=== PATIENT | male | born 1995 | race Caucasian/White ===

== ENCOUNTER 2018-11-23 15:44 | Emergency (ER) | payer OTHER, SELFPAY ==
[2018-11-23 15:51] VITALS: BP 131/76; PULSE 94; RESP 12; TEMP 36.7; O2SAT 100; BMI 27.9
--- NOTE | 2018-11-23 16:00 | EKG12_ITS ---
Test Reason : [facility] Blood Pressure : / mmHG Vent. Rate : 084 BPM Atrial Rate : 084 BPM P-R Int : 166 ms QRS Dur : 094 ms QT Int : 344 ms P-R-T Axes : 069 069 068 degrees QTc Int : 406 ms Normal sinus rhythm with sinus arrhythmia Normal ECG Confirmed by ANAND REYEZ, NATALIE ([id number]), business editor PATRICIA AUGUSTINE ([id number] on 11/26/2018 9:52:24 AM Referred By: Jacoby Toledo Confirmed By:NATALIE MICHEL MD
--- NOTE | 2018-11-23 16:01 | ED.VISSUMM ---
- ER Visit Summary Date of Service: 11/23/18 Chief Complaint: Suicidal ideation History of Present Illness: The patient is a 23 M who presents for suicidal ideation. Patient was being evaluated at the counseling center, and was referred to the emergency department with a pink slip in place due to suicidal ideation. Per the counseling center, patient is feeling suicidal and has a plan to hang himself or shoot himself with a gun. He does have access to guns in his home. Patient is on Abilify, Lexapro and Wellbutrin, but he has not taken them in 3 days because he ran out. Patient also has not been eating or sleeping well. Patient is denying being suicidal today, although he does admit that he has at the 2 plans. He states he has been feeling that way for a couple days now. He denies any chest pain, shortness of breath, headache, abdominal pain, nausea or vomiting or any other complaints. Physical Examination: Vital signs: afebrile, hemodynamically stable, no hypoxia on room air General: well nourished, well developed, in no distress Skin: warm, dry, no rash, no pallor HEENT: normocephalic and atraumatic; PERRL, EOMI, moist mucous membranes Cardiovascular: regular rate and rhythm without murmurs, no peripheral edema, 2+ pulses all distal extremities Respiratory: No increased work of breathing, lungs are clear to auscultation bilaterally, no rales, rhonchi or wheezing Abdominal: Abdomen is soft, nontender MSK: Moves all extremities, no deformities, normal strength Neuro: Awake and alert, oriented ?4. No facial droop, sensation and motor function intact and symmetric Psych: Depressed affect, poor eye contact, positive for suicidal ideation Test Results: Abnormal Lab Results 11/23/18 11/23/18 11/23/18 17:15 17:21 17:21 WBC 4.2 L RBC 5.32 Hgb 15.5 Hct 46.9 MCV 88.2 MCH 29.1 MCHC 33.0 RDW 12.9 RDW Differential 41.5 Plt Count 226 MPV 9.4 Immature Gran % (Auto) 0.200 Neut % (Auto) 46.2 L Lymph % (Auto) 36.0 Caribou % (Auto) 13.1 H Eos % (Auto) 3.8 Baso % (Auto) 0.7 Absolute Neuts (auto) 1.9 L Absolute Lymphs (auto) 1.51 Total Counted Not Reportable Sodium 140 Potassium 4.1 Chloride 108 H Carbon Dioxide 31.0 Anion Gap 1 L BUN 7 Creatinine 0.93 Estim Creat Clear Calc 128.64 Est GFR (MDRD) Af Amer 130 Est GFR (MDRD) Non-Af 107 BUN/Creatinine Ratio 7.5 L Glucose 84 Calcium 8.7 Total Bilirubin 0.50 AST 16 ALT 35 Alkaline Phosphatase 67 Total Protein 7.1 Albumin 4.1 Globulin 3.0 Albumin/Globulin Ratio 1.4 Urine Opiates Screen NEGATIVE Urine Methadone Screen NEGATIVE Ur Barbiturates Screen NEGATIVE Ur Phencyclidine Scrn NEGATIVE Ur Amphetamines Screen NEGATIVE U Methamphetamin-MDMA NEGATIVE U Benzodiazepines Scrn NEGATIVE Urine Cocaine Screen NEGATIVE U Cannabinoids Screen NEGATIVE Ur Drug Screen Comment Ethyl Alcohol 11/23/18 17:21 WBC RBC Hgb Hct MCV MCH MCHC RDW RDW Differential Plt Count MPV Immature Gran % (Auto) Neut % (Auto) Lymph % (Auto) Caribou % (Auto) Eos % (Auto) Baso % (Auto) Absolute Neuts (auto) Absolute Lymphs (auto) Total Counted Sodium Potassium Chloride Carbon Dioxide Anion Gap BUN Creatinine Estim Creat Clear Calc Est GFR (MDRD) Af Amer Est GFR (MDRD) Non-Af BUN/Creatinine Ratio Glucose Calcium Total Bilirubin AST ALT Alkaline Phosphatase Total Protein Albumin Globulin Albumin/Globulin Ratio Urine Opiates Screen Urine Methadone Screen Ur Barbiturates Screen Ur Phencyclidine Scrn Ur Amphetamines Screen U Methamphetamin-MDMA U Benzodiazepines Scrn Urine Cocaine Screen U Cannabinoids Screen Ur Drug Screen Comment Ethyl Alcohol 8.0 Emergency Department Course and Treatment: Medical screening exam was performed. Patient was medically cleared for further evaluation by the crisis counselor for placement in an inpatient psychiatric facility. Patient was pink slipped. Final disposition is pending acceptance for inpatient management at a psych facility. Treatment Plan: Patient was accepted at [facility] by Dr. Watt. Disposition: [] Impression: Suicidal ideation This note was generated with TapFwd dictation software. It may contain incorrect words, spelling, and punctuation that were not noted in review of the chart prior to signing ED Disposition - Plan for ED Patient: Referrals: Savanna Atkins MD [Primary Care Provider] -
--- NOTE | 2018-11-23 16:05 | NURSING ---
NO OLD EKGS
--- NOTE | 2018-11-23 17:28 | ED.RN ---
SPOKE WITH DIETARY REGARDING MEAL.
[2018-11-23 17:34] LABS: Amphetamine Urine VISTA NEGATIVE (<1000 ng/mL); Barbiturate Urine VISTA NEGATIVE (< 200 ng/mL); Benzodiazepine Urine VISTA NEGATIVE (< 200 ng/mL); Cocaine Urine VISTA NEGATIVE (< 300 ng/mL); Ecstacy Urine VISTA NEGATIVE (< 500 ng/mL); Methadone Urine VISTA NEGATIVE (< 300 ng/mL); PCP Urine VISTA NEGATIVE (< 25 ng/mL); THC Urine VISTA NEGATIVE (< 50 ng/mL); Vista UDS pH Range 7
[2018-11-23 17:48] LABS: ALB/GLOB Ratio 1.4 RATIO (0.9-2.4); AST(SGOT) 16 U/L (15-37); Alanine Aminotransfer ALT/SGPT 35 U/L (16-61); Albumin, Serum 4.1 g/dL (3.2-5.0); Alkaline Phosphatase 67 U/L (45-117); Anion Gap 1 (5-15); BUN 7 mg/dL (7-18); BUN/Creat Ratio 7.5 RATIO (10-20); Calcium,Total 8.7 mg/dL (8.5-10.1); Chloride 108 mmol/L (98-107); Creatinine, Serum 0.93 mg/dL (0.70-1.30); EST Glomerular Filtration Rate 107 mL/min (>60); Est Glom Filt Rate - Afr Amer 130 mL/min (>60); Estimated Creatinine Clearance 128.64 ml/min; Glucose 84 mg/dL (74-106); Potassium 4.1 mmol/L (3.5-5.1); Protein, Total 7.1 g/dL (6.4-8.2); Sodium Level 140 mmol/L (136-145)
[2018-11-23 18:01] LABS: Hematocrit 46.9 % (40-54); Hemoglobin 15.5 g/dl (13.0-16.5); Mean Corpuscular Hgb 29.1 pg (27.0-32.0); Mean Corpuscular Volume 88.2 fL (80-94); Red Blood Count 5.32 M/mm3 (4.6-6.2); White Blood Count 4.2 K/mm3 (4.4-11.0)
[2018-11-23 18:02] LABS: Absolute Lymphocyte Count 1.51 X10^3/ul (0.83-4.51); Absolute Neutrophil Count 1.9 X10^3/uL (2.0-7.7); Basophil# 0.03 X10^3/uL; Basophil% 0.7 % (0-1); Eosinophil# 0.16 X10^3/uL; Eosinophils% 3.8 % (0-5); Lymphocyte # 1.51 X10^3/ul (4.0); Mean Platelet Vol. 9.4 fl (6.2-12.0); Monocyte# 0.55 X10^3/uL; Monocyte% 13.1 % (0-10); Neutrophil # 1.94 X10^3/uL (2.7-7.7); Neutrophil % 46.2 % (47-70); POSITIVE COUNT NO; POSITIVE DIFFERENTIAL NO; POSITIVE MORPHOLOGY NO; Platelet Count 226 K/mm3 (150-450); RBC Distribution Width CV 12.9 % (11.6-14.6); RBC Distribution Width SD 41.5 fl (35.1-43.9)
[2018-11-23 18:14] VITALS: PULSE 83; RESP 14
[2018-11-23 20:03] VITALS: PULSE 60; RESP 14
[2018-11-23 20:59] VITALS: BP 118/75; PULSE 88; RESP 16; O2SAT 99
== END 2018-11-23 23:09 ==
LOC: ED 16:27
PROVIDERS: Emergency Provider Emergency Medicine; Family Provider Internal Medicine; PCP Internal Medicine
DX: R45.851 Suicidal ideations (principal); F32.9 Major depressive disorder, single episode, unspecified; Z79.899 Other long term (current) drug therapy
CPT/HCPCS: 36415; 80053; 80307; 80320; 85025; 93005; 99285; G0480

== ENCOUNTER 2019-07-07 09:00 | Outpatient (RCR) | payer OTHER, SELFPAY ==
[2019-07-05 13:15] VITALS: BMI 27.9
--- NOTE | 2019-07-07 10:25 | BH.SGPN.GN ---
Behaviors/Verbalizations/Mental Status: []Client alert and oriented, casually dressed and groomed. Eye contact good. Motor activity appropriate. Speech within normal limits. Affect flat, mood anxious, depressed. Thoughts linear, logical, no signs of hallucinations or delusions. Client Response/Progress/Benefit: []Client was a passive participant AEB client?s quietness, but he did complete the worksheet. Client connected with discussion on different types of anxiety, as well as the difference between ?normal? anxiety and anxiety disorders. Client gained awareness of personal physical symptoms of anxiety which included: upset stomach and feeling tense. Client identified playing video games and smoking marijuana as safety behaviors he has engaged in that provide short term relief but increase anxiety over time. Client appeared to benefit from gaining insight to safety behaviors and how anxiety manifests itself, as well as harmful impact of safety behaviors on mental health. Client?s first day of IOP tx. Will continue IOP to prevent decompensation of symptoms, reduce isolation, and increase healthy coping skills. Narrative Note: []
--- NOTE | 2019-07-07 10:47 | BH.NA_ITS ---
Physical Data - Vital Signs Pulse Rate: 70 Respiratory Rate: 16 Blood Pressure: 128/80 - Height/Weight Height: 1.8 m Weight:: 88.451 kg Weight in Pounds: 195.0 lbs Current Medication Compliance - Medication Compliance Do you take your medication as prescribed?: Yes Nutritional History - Appetite Nutritional Instructions:: If client shows signs of a swallowing problem, weight change of 10 pounds or more in the last month, or is on a diabetic diet, the physician will review and request a dietitian consult, as appropriate. All unintentional weight loss will be referred to the physician for decision on need for dietitian consult. Describe your appetite:: Fair Have you noticed a change in your eating habits lately?: Yes Additional nutritional information:: Client states his appetite varies, stating I either eat anything that is in front of me or I don't eat anything at all. Functional Assessment - Sleep Pattern Describe any problems with sleeping: Client states he has problems falling asleep, but also states once he is awake it is hard to stay awake. Client denies naps during the day. Client reports drinking copious amounts of coffee during the day, talked with client about how this may be affecting his sleep. - Activities Motor Activity:: Hyperactivity Comments:: Client tapping feet on floor during whole conversation Sensory/Communication Assess - Vision Problems Do you have any vision problems?: Glasses - Communication Problems Do you have difficulty understanding what people are saying?: No Medical Problems/History - Pain Assessment Do you have acute or chronic pain?: No - Family History Family History: Family History (Last Reviewed 07/05/19 @ 13:15 by Marco Rodriguez) Other Alcohol abuse Depression with anxiety Surgical History - Surgical History Have you had any surgeries? If so, list type and date:: No Substance Abuse - Substance Abuse Please describe substance abuse in the last 30 days:: Client denies any alcohol use, past or present. Client states he currently uses marijuana. When asked about how much marijuana he uses, client states As much as I can get my hands on and states he uses it daily if he is able to obtain it. Denies other drug use. Mental Status Summary - Mental Status Significant Findings/Observations on Appearance and Mood:: Client is alert and oriented x 4. Client is casually groomed. Client is cooperative with assessment and makes good eye contact during conversation. Clients activity slightly hyperactive- talking somewhat rapidly and tapping feet during entire assessment. Clients voice volume normal and speech coherent. Client appears mildly depressed and moderately anxious during conversation. Client appears to have logical associations during assessment. Client denies delusions or hallucinations. Client reports passive thoughts of suicide. Clients attention and concentration intact during assessment. Suicide Assessment - Suicidal Ideation Are you currently or have you been suicidal in the past?: Yes Suicidal Intentional Rating Scale (SIRS): Suicidal thoughts (past) Physician Notification: If Active suicidal thoughts/Will not contract for safety is checked, contact physician and document in the Physician Notification section below. Past Psychiatric History - MH Treatment Hx Past Psychiatric Medications:: Lexapro Age of first mental health symptoms: Client states he was diagnosed with depression and social anxiety about 3 years ago. Describe (age, circumstance, etc) any past hospitalizations: Client was hospitalized in October 2018 at [facility] for SI with plan. Client states he knew was was beginning to spiral with his thoughts again and states he went to [facility] again and got referred to program. Current providers for mental health treatment (counselor, psychiatrist, bilingual case manager, etc.): Client sees Jose Raul Cameron and Bean Mcmahon at [facility]. Fall Risk Assessment - Age Age: Less than 60 - Mental Status Mental Status: Willing & able to ask for assistance when needed - Physical Status Physical Status: No problems - Impairments Impairments: None - Elimination Elimination: Continent AND independent - Gait or Balance Gait or Balance: Walks independently - Hx of Falls History of falls in the past 6 months: No known history - Medications/Substances Psychotropics:: Antidepressants, Antipsychotics Medications/substances used within the past 24 hours or ordered to administer: 1-2 of the medications/substances listed above - Total Score Total Points:: 1 RN Summary of Impressions - Impressions Recommendations: Include psychiatric and medical issues, treatment planning recommendations, and discharge planning needs. Impressions: Psychiatric Issues: major depressive disorder recurrent severe without psychosis, generalized anxiety disorder - Level of Care How do the client's current symptoms and functional deficits support need for this level of care?: Client states recently he has felt his symptoms of depression and anxiety start to spiral and he knew he needed intervention. Client states he went to [facility], where he had been hospitalized in October 2018, and they referred him to this program. Client states he has many stressors that have lead to current state. Client states he has a high stress job, he has financial stressors, he has very little support system, his dog recently and he was recently scammed on the internet. Client states he has feelings of wanting to be isolated and has no energy. Client states he has little desire to carry out ADL's. Client states he has passive thoughts of SI, stating I think about it sometimes, and if I were to have a plan it would be to starve myself because I could always start eating again if I changed my mind. IOP will promote gains and prevent further decompensation while providing social support this client needs and skills training.
--- NOTE | 2019-07-07 11:25 | BH.SGPN.GN ---
Behaviors/Verbalizations/Mental Status: []Client alert and oriented, disheveled in appearance. Eye contact poor. Motor activity appropriate. Speech within normal limits. Affect constricted, mood anxious and depressed. Thoughts linear, logical, no signs of hallucinations or delusions. Client Response/Progress/Benefit: []Pt a passive participant during discussion, providing limited input to discussion. Pt able to connect with the discussion reviewing three categories of skills for managing anxiety which included mind-based, body-based, and self-soothing. Contributed ideas to group brainstorming various skills within the different categories. Pt identified will continue to utilize current relaxation skills uses which includes: video games, movies, and learning about cars. Not ready to identify new skill could try. Pt seemed to benefit from increased awareness of healthy skills to manage anxious symptoms and identifying skills willing to practice outside treatment environment. Pt's first day in IOP. Recommended to continue IOP level of care to continue to increase healthy coping skills, identify and challenge distorted thoughts, and prevent decompensation. Narrative Note: []
[2019-07-07 11:47] VITALS: BP 128/80; PULSE 70; RESP 16
--- NOTE | 2019-07-07 12:09 | BH.PSY.EVA_ITS ---
Psychiatric Evaluation - Initial Evaluation Initial Evaluation: Chief Complaint: [] I was so depressed that I was suicidal. History of Present Illness: [] Patient is a 24-year-old single male with a history of depression and social anxiety. He was admitted to [facility] in October 2018 for suicidal ideation with a plan to hang himself. He returned to [facility] on July 05, 2019 because his depression was worsening again and they referred him to the [facility] program. He currently lives with his mother and her boyfriend and his sister. He states that his family is not nice to him and they totally do not believe in his non-binary approach to gender. He works part-time at [email or web address] since October 2018 but he hates his job. He does like to people he works with. He says that his job is stressful and it does not pay enough. He states that he has been having worsening mood for about the past month with sadness, hopelessness and worthlessness. He feels stuck in life. He has been isolating self. He says I am not a people person but I am very lonely. He endorses anhedonia, increased sleep at times, low energy level and fluctuating concentration. He denies guilt. He does endorse passive thoughts that he would not care if he . He denies any suicidal or homicidal ideation. He does have a plan to starve himself if he decides to kill himself later. He feels this is a way that he could change his mind if he decided he wanted to live. He denies any hallucinations or delusions. He denies any symptoms of lucie. He has a lot of social anxiety which caused him to dropped out of college. He had panic attacks in September 2018 but has not having panic attacks now. He obsesses over video games but has no rituals. He denies any eating disorder, trauma, PTSD. He has a history of cutting in 2017 and again in early 2018 using a knife and a razor. He did not require any stitches. He is also very stressed because he is being investigated by the FBI because he fell for asking him online which involved sending sexually explicit video. He then turned went to the police and told him he felt he had been scanned in this video and so the FBI is currently investigating. He thought the girl in the video was 23 years of age and it said that she was 24. This happened around and he went to the police voluntarily and explained the situation. However he is still worried that has since the FBI is investigating him that he could get into some trouble. He denies any pedophilia. He identifies he has non-binary gender and is mostly attracted to adult women but he said he is so lonely that at this point if an adult man like to him he would be interested. Current Psychiatric Medications: [] Abilify 5 mg p.o. daily (since October,); Prozac 20 mg p.o. daily (since October,); Wellbutrin XL 300 mg p.o. every morning (x3 years now). Past Psychiatric History: [] He has a history of one psych admit at [facility] in October 2018 for suicidal ideation with a plan to hang himself. No other psych admits. No suicide attempts ever. No self-harm urges now but he has had them in the past. He currently has a counselor and his psych provider. His past meds include Lexapro 20 mg for 3 years which was discontinued around October 2018. He first took psych meds in 2016 for major depressive disorder. No other psych meds. Substance Use History: [] He does use marijuana as as often as I can get it. He uses about once a week due to financial issues. He first used marijuana at age 21. He uses alcohol less than once a week and has only 2 drinks then. No blackouts ever. No other drug use. Non-smoker Allergies: [] No known allergies Medications: [] Abilify, Wellbutrin XL, and Prozac Past Medical History: [] He has no medical illnesses. He has not had any surgeries. He has normal sexual function with masturbation. He has never been sexually active. He describes himself is sanchez sexual. But he likes only adult men and women. Family Psychiatric History: [] His mother is 45 years old and his father is 45 years old and they are relatively healthy. His mother has depression and anxiety which is untreated. He states that his sister is untreated and is just very weird. He has a brother with alcohol and marijuana abuse. No suicides in the family. Personal/Social History: [] He was born and raised in [facility]. He describes his childhood as chaotic. His mother and father were but they did not love each other and they had a lot of verbal fighting. He denies any abuse x3. He is oldest in the family and has a sister 2 years younger and a brother 4 years younger. He is kind of close to his siblings. At school he was bullied a lot all through school. He dropped out of high school about 3 years ago and obtained his GED at age 21. He was never in special classes at school. 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 He has never had a serious boyfriend or girlfriend. He is currently using a dating rupal and he currently got scanned on the Internet see present illness for this. He is very lonely but hesitates to approach or go after friends because he expects that people will not like him. Legal History: [] No arrests. No DUIs. 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 Review of Systems: [Negative except as noted in present illness] Vital Signs: [] Reviewed in nurse's notes Mental Status Examination: Patient is a 24-year-old male who appears normal for stated age and is casually dressed and groomed with good hygiene. He is cooperative during the interview with no psychomotor agitation or retardation. He has good eye contact. Mood is depressed. Affect is constricted and consistent with depression. Thought process is goal-directed and organized. Thought content: No evidence of hallucinations or delusions. He does have passive thoughts that he wound care if he . no evidence of suicidal or homicidal ideation. Reality testing is intact. Intelligence is average. Judgment is intact. Insight: Some present. [] Diagnoses: [] Layton I: [] Major depressive disorder recurrent severe without psychosis; generalized anxiety disorder Layton II: [] Strong avoidant traits Layton III: [] Negative Layton IV: [] Memory support, legal issues, job issues Plan: [] Patient will start the IOP program at [facility] as the support, structure, education, individual and group therapy will hopefully prevent worsening of the patient's symptoms which might require hospitalization. He felt safe during the interview and if it any time he does not feel safe he will let us know or go to the emergency room. The risks, options and possible side effects of the medication were discussed with the patient and he understands and accepts these. He will continue his Abilify and Wellbutrin at their current doses. He agrees to increase the Prozac to 40 mg p.o. daily. A prescription was given for this medication. I will follow-up with the patient in 2 weeks.
--- NOTE | 2019-07-07 12:22 | BH.DR.ITP ---
Initial Treatment Plan - Patient Information Visit Information: ADMISSION DATE: EXPECTED LOS: 4-6 weeks - Problems/Symptoms Problem #1:: Depression Symptom:: Sadness, anhedonia, passive thoughts, low energy, hopelessness Problem #2:: Social anxiety Symptom:: rumination, avoidance of social situations
--- NOTE | 2019-07-07 15:39 | BH.COMM ---
Communication Note - Communication with Client Communication Note: Met with client to complete inital paperwork. No changes since pre-admission screening. Complete [place] Suicide Screening. Client reports having passive suicidal ideations, with thoughts of starving himself, within the past month, but denies any intent to act on these thoughts. Client shared I'm too afraid of . Presents as low risk. Protective factors include his car, mom, and video games. Feels able to maintain safety.
--- NOTE | 2019-07-08 09:00 | BH.SGPN.GN ---
Behaviors/Verbalizations/Mental Status: [] Eye contact is good. Motor activity is appropriate. Appearance is disheveled. Speech is Appropriate. Mood is depressed. Affect is flat. Thoughts are linear and logical. No evidence of psychosis. Reviewed daily check in sheet and no reports of suicidal ideations or intent. Client Response/Progress/Benefit: [] Pt participated at times during group discussion. Emotion for today is irritable. Discussed some recent mental health wins which included getting a new car and starting IOP yesterday. States I really wanted to get help. Feels that his first day yesterday was beneficial. Discussed recent stressors which included his job and recent loss of pet. Progress noted per pt report. Benefited from group support and encouragement. Will continue in IOP to maintain safety, prevent decompensation, increase support, learn healthy coping skills. Narrative Note: []
--- NOTE | 2019-07-08 10:13 | BH.SGPN.GN ---
Behaviors/Verbalizations/Mental Status: [Client alert and oriented, casually dressed and appropriately groomed. Eye contact fair to good. Motor activity appropriate. Speech within normal limits. Affect congruent, mood dysthymic, anxious. Thoughts linear, logical, no signs of hallucinations or delusions. ] Client Response/Progress/Benefit: [Client was an active participant in group activity and provided some input to discussion when prompted. He connected with the topic of obstacles and solutions and worked with group to identify common internal and external barriers that could prevent progress towards desired reality. Client shared his current reality as ?like a natural disaster that the earth experiences, such as a hurricane?. Pt shared that he knows natural disasters have purpose and help the earth in the long run but that currently he is struggling to see that in regard to his own life. Client shared a realistic, desired reality would be feeling able to identify the positives within the times he encounters ?natural disasters? in his own life. Benefited from group as client was able to identify impact of internal barriers on current mental health state and ability to make progress. Will continue IOP to prevent decompensation and improve self-esteem, as well as reduce anxiety and depression.] Narrative Note: []
--- NOTE | 2019-07-08 11:15 | BH.SGPN.GN ---
Behaviors/Verbalizations/Mental Status: []Client alert and oriented, disheveled appearance. Eye contact poor. Motor activity appropriate. Speech within normal limits. Affect flat, mood anxious. Thoughts linear, logical, no signs of hallucinations or delusions. Client Response/Progress/Benefit: []Client was an active participant in group discussion and activity. Able to identify low self-esteem, self-doubt, and isolation as obstacles which are preventing client from achieving client?s desired reality. However, client was able to identify personal resilience factors that can help client overcome these barriers. Client?s personal resilience factors included; getting professional help, using art, and taking time for personal interests. Passive during activity and listening to ideas on how to cope with internal barriers. Client listened as peers identified various obstacles during the activity and developed strategies to overcome those obstacles to wellness and desired reality. Client selected wanting to work on the barrier of low self-esteem and wants to do so by watching movies. Benefited from group by identifying obstacles and solutions to desired reality. Will continue IOP tx to prevent decompensation of depressive symptoms and to reduce isolation. Narrative Note: []
--- NOTE | 2019-07-08 13:52 | BH.MDN_ITS ---
Multi-Disciplinary Note - Note 30-min Individual Time Started:: 12:25 Date: 07/08/19 Purpose of session/treatment goals addressed:: The purpose of this session was to gather information on client's current stressors, symptoms, and treatment goals. Another goal was to build rapport. Eye Contact:: Poor Motor Activity:: Restless Appearance:: Disheveled Speech:: Appropriate Mood:: Dysthymic Affect:: Other - incongruent AEB client laughing and smiling, but reporting low self-esteem and depression. Thoughts:: Linear, Logical, No evidence of hallucinations/delusions noted Staff Interventions:: Therapist used active listening and open-ended questions to explore client's current stressors, symptoms, history, and treatment goals. Therapist used strengths perspective to build rapport and help client identify personal resilience factors. Therapist provided psychoeducation on depression, low self-esteem, and distortions. Therapist gently challenged client?s self- deprecation and comparisons. Therapist gave client homework to talk to one person in [facility] tomorrow. Client Response:: Client responded well to session, open to meeting with therapist. Client reports feeling depressed, lonely, and anxious. Client shared feeling this way for most of client's life. Client reported struggling with low self-esteem since I can remember. Client also has a hard time making friends and has never had an intimate relationship. Client reports this is mostly due to client's social anxiety, fear of being judged, and low self-esteem. Client wants to have relationships and make friends, but does not know how to do this currently. Client able to gain awareness that client's self-deprecation, constant comparing to others, and disqualifying of positives keeps client stuck. Client receptive to gentle thought challenging by therapist and setting a goal to talk with one person at [facility] tomorrow. Client and therapist also discussed realistic expectations for progress such as baby steps and the importance of sitting with uncomfortable feelings. Risks/Concerns:: Client continues to report passive thoughts of , but denies any thoughts of actually killing self. Denies any active suicidal ideations, plan, or intent as of 07/08/19. Client is future oriented and is excited about starting a [employer] channel and the release of a new video game. Progress Toward Goals/Plan:: Client?s second day of IOP. Client endorses a depressed mood, negative thoughts, passive wishes of , low energy, anhedonia, and isolative behaviors. Client also has severe social anxiety and constantly fears judgement from others. Client reports low self-esteem and reports often comparing self to others. Client identified treatment goals as feeling ?less shitty,? less isolation, better self-esteem, reduced negative thinking, and drawing more. Will continue tx to prevent decompensation, increase use of healthy coping skills, and reduce depression. Time Stopped:: 12:56
--- NOTE | 2019-07-08 13:55 | BH.PSA_ITS ---
Source of Information - Presenting Problems/Circumstances Problems, Referral Source, Mental Status, Client: Pt is a 24-year-old single male with a history of depression and social anxiety. Pt was admitted to [facility] in October 2018 for suicidal ideation with a plan to hang himself. Pt returned to [facility] on July 05, 2019 because his depression was worsening again, and they referred him to the [facility] program. Pt states worsening mood for about the past month with sadness, hopelessness and worthlessness. Pt feels stuck in life and reports he has been isolating self. Pt endorses anhedonia, increased sleep at times, low energy level and fluctuating concentration. Pt does endorse passive thoughts that he would not care if he and pt has a plan to starve himself if he decides to kill himself later. Pt denies any active suicidal ideations or intent. Pt has a lot of social anxiety which caused him to drop out of college and avoid social situations. Pt has a history of panic attacks with last panic attack being in September of this year. Pt has a history of cutting in 2016 and again in early 2018 using a knife and a razor. Pt denies any self-harming currently. Pt has numerous psychosocial stressors including family discord, financial stress, FBI investigation, lack of supports, and pt?s gender identity as it impacts how pt?s family treats pt. Pt?s symptoms are impacting pt?s ability to function at baseline as well as pt?s social, occupational, and familial functioning. Cooperative with assessment. Eye contact fair. Motor activity appropriate. Mood anxious and depressed. Affect incongruent, laughing while reporting feeling depressed. No signs of hallucinations or delusions. Psychiatric Presentation - Psych Issues & Need for Admission Psychiatric Issues:: Major depressive disorder recurrent severe without psychosis F33.2, SARY, Strong avoidant traits Past Psychiatric History - Treatment Hx Treatment History: Client has a history of one psych admit at [facility] in October 2018 for suicidal ideation with a plan to hang himself. No other psych admits. No suicide attempts ever. No self-harm urges now, but client has a history of urges to self-harm. [facility] Client's past meds include Lexapro 20 mg for 3 years which was discontinued around October 2018. Client first took psych meds in 2016 for major depressive disorder. First hospitalization:: [facility], October 2018 Most recent hospitalization:: October 2018 Medication Trials:: Yes - see above ECT Therapy:: No Age of first mental health symptoms: Client reports being on medication for depression for the last three years. Describe (age, circumstance, etc) any past hospitalizations: Client's first and only psychiatric hospitalization was in October 2018. Client was 23 years old at the time. Client was hospitalized due to increased depressive symptoms with suicidal ideations and a plan to hang himself. Current providers for mental health treatment (counselor, psychiatrist, family service caseworker, etc.): Client sees a therapist and psych provider [facility]. Development & Family of Origin - Childhood Significant Childhood Events: Client describes his childhood as chaotic. Client reported his mother and father were , but they did not love each other and they had a lot of verbal fighting. - Family Who currently lives in your home?: Client currently lives with his mother, brother, and sister in [place], [place]. Describe family composition:: Client is oldest in the family and has a sister 2 years younger and a brother 4 years younger. He is kind of close to his siblings. Client shared he loves his siblings, but he does not spend a lot of time with them. Client gets along okay with his mother. - Family History Family History: Family History (Last Reviewed 07/16/19 @ 13:24 by Megan Nicole) Other Alcohol abuse Depression with anxiety Family Hx of Psychiatric or AOD Problems: Client reports his mother has depression and anxiety which is untreated. Client states that his sister has untreated mental health issues and is just very weird. Client has a brother with alcohol and marijuana abuse. No suicides in the family. Ethnicity - Culture Do you identify yourself with any particular cultural, ethnic background, or community?: No - Comments Additional Information:: Client identifies as pansexual and non-binary Spirituality - Yazdanism Do you currently identify with any organized pentecostal?: None - Beliefs Is there a particular form of support from this community you can use for your recovery?: No Mental Status - Memory Recent Memory: Fair Remote Memory: Fair - Concentration Concentration: Fair - Eye Contact Eye Contact: Poor - Speech Speech: Repetitious - Thought Process Thought Process: Ruminations Insight: Fair Judgment: Poor Behavior: Anxious - Orientation Orientation: Time, Person, Place, Situation - Appearance Appearance: Appropriate - Mood Mood: Anxious, Depressed - Affect Affect: Inappropriate - incongruent AEB laughing while reporting being highly anxious and depressed. Suicide Assessment - Suicidal Ideation Have you ever felt like hurting yourself?: Yes Please explain:: Client denies any suicide attempts. History of cutting behaviors that did not require stiches. Hospitalized in October of 2018 for suicidal ideations with a plan to hang himself. Were you using ETOH/drugs at the time?: No Suicidal Intentional Rating Scale (SIRS): Current suicidal thoughts/No plan/Contracts for safety - Client does endorse passive thoughts that he would not care if he . Client denies any suicidal or homicidal ideation. Client does have a plan to starve himself if he decides to kill himself later. Client reports he feels this is a way that he could change his mind if he decided he wanted to live. Physician Notification: If Active suicidal thoughts/Will not contract for safety is checked, contact physician and document in the Physician Notification section below. Violent Behavior/Abuse History - Homicidal Ideation Do you have any homicidal thoughts? If so, explain:: No Is there a known potential victim? If yes, who:: No - Abuse Types of Abuse: Verbal - witnessed verbal abuse between his parents., Mental - Client reports being bullied a lot throughout school. - Life Events Are there any other significant life events?: Financial loss - Reports finances as an ongoing stressor in his life. Reports he does not make enough money to live independently. Worries about being able to afford his car payments., Hardships - Client is being investigated by the FBI for sending a sexually explicit video to a minor. He thought the girl in the video was 23 years of age and it said that she was 24. Client then went to the police and told them about what happened and that he felt he had been scammed into sending the video and so the FBI is currently investigating. This happened around . Client is worried that has since the FBI is investigating him that he could get into some trouble. He denies any pedophilia. - Safety Do you ever feel threatened in your home? If yes, describe:: No Adult Social History - Age 19 to Present Describe your current support system:: Client reports a very limited support system. Lives with his mother, sister, and brother, but client does not descrive them as supports. Client mentioned one friend that he spends time with occassionally. Substance Use - Substance Substance Use Type: Alcohol - Client uses alcohol less than once a week and has only 2 drinks when he uses. Denies history of blackouts., Marijuana - Client uses marijuana as as often as I can get it. He uses about once a week due to financial issues. Client first used marijuana at age 21. No other drug use. Non-smoker - IV Substance Use Do you have a history of IV use?: denies Leisure/Social Activities - Interests What do you enjoy or might be interested in learning about?: Client likes video games and he reports videos games as one of his protective factors. Client also likes to draw and listen to music. Education & Occupational Histo - Education What is your level of education?: GED - Client dropped out of high school and about 3 years ago client obtained GED at age 21. Client attempted to attend college, but he dropped out due to social anxiety and panic attacks. 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 Client currently works at [employer]. List any previous volunteering you may have done:: n/a Service - Service Have you ever been in the ?: No Legal History - Records Have you had any past legal charges?: No Do you have any current legal charges?: Yes - being investigated by the FBI Have you ever been incarcerated? If yes, describe:: No - Court Orders Have you had any past court orders for psychiatric treatment?: No Do you have a present court order for psychiatric treatment?: No Problem Checklist - Current Problem Areas Problem List: Nutritional/Eating pattern changes - reports poor appetite., Depressed mood/sad - Anhedonia, feels stuck in life, depressed mood, low energy, hopelessness, isolative behaviors, and passive suicidal ideations., Anxiety - severe social anxiety, history of panic attacks, avoidance behaviors due to anxiety, and ruminations., Inattention - difficulty concentrating, Substance use - Currently uses marijuana whenever I can get my hands on it. Occasionally drinks. No history of blackouts. Family history of alcohol abuse., Additional psychosocial stressors - Limited social supports, currently being investigated by the FBI, reports financial stress, and difficulty making friends. Discharge Planning Needs - Anticipated Follow-Up Mental Health Center (Name/Phone Number):: [facility] [phone] Primary Care Physician: Savanna Atkins Release of Information Signed:: No Community Agency Contacts: [facility]' Counselor Name/Phone Number: n/a Aviation Safety Inspector's Assessment - Client's Needs What are the client's feelings about the program?: Client is apprehensive about the program due to his social anxiety. What are the client's goals?: Reduce anxiety, increase social support, and reduce negative thoughts of self. What are the client's strengths?: Pt is creative and enjoys drawing, art, video games, and music. Pt has a few friends and is active in the online community. Pt is future oriented and despite feeling depressed, he believes he can succeed in life. Pt is established with outpatient counseling and psychiatry. Diagnoses - Diagnoses Diagnosis #1:: Major depressive disorder recurrent severe without psychosis F33.2 Diagnosis #2:: SARY Diagnosis #3:: Strong avoidant traits Interpretive Summary - Interpretive Summary Interpretive Summary: Pt is a 24-year-old single male with a history of depression and social anxiety. Pt was admitted to [facility] in October 2018 for suicidal ideation with a plan to hang himself. Pt returned to [facility] on July 05, 2019 because his depression was worsening again, and they referred him to the [facility] program. Pt states worsening mood for about the past month with sadness, hopelessness and worthlessness. Pt feels stuck in life and reports he has been isolating self. Pt endorses anhedonia, increased sleep at times, low energy level and fluctuating concentration. Pt does endorse passive thoughts that he would not care if he and pt has a plan to starve himself if he decides to kill himself later. Pt denies any active suicidal ideations or intent. Pt denies any history of suicidal attempts. Pt has a history of self-harming behaviors including cutting. Denies any current self- harming behaviors. Pt has a lot of social anxiety which caused him to drop out of college and avoid social situations. Pt has a history of panic attacks with last panic attack being in September of this year. Pt has numerous psychosocial stressors including family discord, financial stress, FBI investigation, lack of supports, and pt?s gender identity as it impacts how pt?s family treats pt. Pt reports family history of anxiety, depression, and alcohol abuse. Pt denies history of trauma, but he reports witnessing verbal abuse between his parents as a child. Pt was also bullied during school. Pt?s symptoms are impacting pt?s ability to function at baseline as well as pt?s social, occupational, and familial functioning. Treatment Plan Recommendations - Recommendations Guidelines: Special needs identified to be included in the development of an individualized treatment plan regarding past psychiatric history and treatment, developmental events, family relationships/events/culture, past and/or current educational, occupational, social, and residential experience, and legal status. Recommendations:: Client will start the IOP program at [facility] as the support, structure, education, individual and group therapy will hopefully prevent worsening of the client?s symptoms which might require hospitalization. Client felt safe during the interview and if it any time he does not feel safe client will let us know or go to the emergency room. The risks, options and possible side effects of the medication were discussed between client and IOP psychiatrist. Per IOP psychiatrist?s note, client will continue his Abilify and Wellbutrin at their current doses and client will increase the Prozac to 40 mg p.o. daily. Client and therapist discussed benefits of exposure response prevention therapy to treat social anxiety.
--- NOTE | 2019-07-08 13:55 | BH.MTP_ITS ---
[facility] - Patient Information Program Physician:: Dr. Juanita Shine Primary Therapist:: Ary Rojo - Psychiatric Diagnoses Psychiatric Diagnoses:: Major depressive disorder recurrent severe without psychosis F33.2, SARY, Strong avoidant traits Diagnosis Code(s):: F 33.2 - Estimated LOS Estimated LOS (in weeks):: 6 Problem/Goal #1 - Problem/Goal #1 Stated Goal:: Client will increase mood stability, reduce depression, and reduce suicidal ideations due to MDD Description of Barriers: Pt. reports limited supports and states not getting along well with family. Pt is anxious in social situations which has prevented pt from making new friends and promotes isolation. Pt reports history of self- harming behaviors and negative self-talk that reduces pt's confidence. Pt. regularly smokes marijuana to help pt cope with anxiety and depression. Pt reports work is a big stressor for pt and that pt is struggling financially. Pt has a history of avoidance behaviors that reinforce anxiety and depression. Functional Impact: Pt is a 24-year-old single male with a history of depression and social anxiety. Pt was admitted to [facility] in October 2018 for suicidal ideation with a plan to hang himself. Pt returned to [facility] on July 05, 2019 because his depression was worsening again, and they referred him to the [facility] program. Pt states worsening mood for about the past month with sadness, hopelessness and worthlessness. Pt feels stuck in life and reports he has been isolating self. Pt endorses anhedonia, increased sleep at times, low energy level and fluctuating concentration. Pt does endorse passive thoughts that he would not care if he and pt has a plan to starve himself if he decides to kill himself later. Pt denies any active suicidal ideations or intent. Pt has a lot of social anxiety which caused him to drop out of college and avoid social situations. Pt has a history of panic attacks with last panic attack being in September of this year. Pt has a history of cutting in 2016 and again in early 2018 using a knife and a razor. Pt denies any self- harming currently. Pt has numerous psychosocial stressors including family discord, financial stress, FBI investigation, lack of supports, and pt?s gender identity as it impacts how pt?s family treats pt. Pt?s symptoms are impacting pt?s ability to function at baseline as well as pt?s social, occupational, and familial functioning. Goal Relevant Strengths/Supports: Pt is creative and enjoys drawing, art, video games, and music. Pt has a few friends and is active in the online community. Pt is future oriented and despite feeling depressed, he believes he can succeed in life. Pt is established with outpatient counseling and psychiatry. - Objectives Objective #1 Stated Objective: Client will learn and utilize 2-3 healthy coping strategies to better manage depressive and mood symptoms as shown by reduced DSM-5 scores. Interventions: Through group and individual sessions, therapist will help client identify triggers and warning signs of depression and emotional dysregulation including emotional, physical, and behavioral changes. Therapist will teach client various coping skills to manage symptoms and give client tangible resources to use to regulate emotions. Therapist will use cognitive restructuring techniques and help client gain awareness of negative thoughts that reinforce depressive cycles. Therapist will help client incorporate behavioral activation and assist client in setting SMART goals. Discharge Criteria: Client will have met this goal when can report learning and using at least 2 coping skills to manage depressive symptoms and show a reduction in DSM-5 symptoms. Target Date: 08/18/19 Review Date: 08/06/19 Status: open Objective #2 Stated Objective: Client will identify and replace 2-3 negative thinking patterns that reinforce depressive symptoms, suicidal ideation, and negative self-talk. Interventions: Through groups and individual therapy, client will be provided with education on cognitive distortions, mistaken beliefs, and identifying and combating negative self-talk. Therapist will assist client in recognizing triggers for increased suicidal and depressive thought patterns. Therapist will help client explore connection between thoughts, feelings, and actions and help client reframe depressive thought patterns. Therapist will help client gain awareness of why client has developed negative thoughts and core beliefs of self and teach client how to reframe these thoughts. Discharge Criteria: Client will have accomplished this goal when client can identify and replace at least 2 negative thinking patterns with more realistic, positive statements. Target Date: 08/18/19 Review Date: 08/06/19 Status: open Problem/Goal #2 - Problem/Goal #2 Stated Goal:: Client will reduce social anxiety and increase interpersonal effectiveness skills. Description of Barriers: Pt. reports limited supports and states not getting along well with family. Pt is anxious in social situations which has prevented pt from making new friends and promotes isolation. Pt reports history of self- harming behaviors and negative self-talk that reduces pt's confidence. Pt. neo verdugo smokes marijuana to help pt cope with anxiety and depression. Pt reports work is a big stressor for pt and that pt is struggling financially. Pt has a history of avoidance behaviors that reinforce anxiety and depression. Functional Impact: Pt is a 24-year-old single male with a history of depression and social anxiety. Pt was admitted to [facility] in October 2018 for suicidal ideation with a plan to hang himself. Pt returned to [facility] on July 05, 2019 because his depression was worsening again, and they referred him to the [facility] program. Pt states worsening mood for about the past month with sadness, hopelessness and worthlessness. Pt feels stuck in life and reports he has been isolating self. Pt endorses anhedonia, increased sleep at times, low energy level and fluctuating concentration. Pt does endorse passive thoughts that he would not care if he and pt has a plan to starve himself if he decides to kill himself later. Pt denies any active suicidal ideations or intent. Pt has a lot of social anxiety which caused him to drop out of college and avoid social situations. Pt has a history of panic attacks with last panic attack being in September of this year. Pt has a history of cutting in 2016 and again in early 2018 using a knife and a razor. Pt denies any self- harming currently. Pt has numerous psychosocial stressors including family discord, financial stress, FBI investigation, lack of supports, and pt?s gender identity as it impacts how pt?s family treats pt. Pt?s symptoms are impacting pt?s ability to function at baseline as well as pt?s social, occupational, and familial functioning. Goal Relevant Strengths/Supports: Pt is creative and enjoys drawing, art, video games, and music. Pt has a few friends and is active in the online community. Pt is future oriented and despite feeling depressed, he believes he can succeed in life. Pt is established with outpatient counseling and psychiatry. - Objectives Objective #1 Stated Objective: Client will learn 2-3 strategies to manage anxiety and practice using assertive communication at least one time a day. Interventions: Therapist will teach client various calming coping skills to help client self-regulate when experiencing anxiety. Therapist will provide psychoeducation on anxiety and help client see the benefits of engaging in anxiety-provoking situations rather than avoiding them. Therapist will encourage client to practice social communication during group. Therapist will help client challenge negative thoughts and learn how to express needs. Discharge Criteria: Client will have accomplished this goal when she can report using more assertive communication and practicing at coping skills daily. Target Date: 08/18/19 Review Date: 08/06/19 Status: open Objective #2 Stated Objective: Client will increase social interactions and reduce isolative behaviors by engaging in two social activities a week. Interventions: therapist will provide psychoeducation on maintenance cycles for anxiety and how they impact client's mental health. Therapist will help client gain awareness of how her isolation can impact anxiety symptoms. Therapist will encourage ongoing self-awareness and monitoring of warning signs and triggers. Therapist will help client set weekly goals that will promote closeness with others and keep client out of her room. Therapist will teach client different techniques to improve interpersonal effectiveness and communication skills. Therapist will help client create an anxiety hierarchy to help client increase ability to manage anxious situations. Discharge Criteria: abril will have accomplished this goal when client can re port reduced isolative behaviors and engaging in at least two social activities a week. Target Date: 08/18/19 Review Date: 08/06/19 Status: open
--- NOTE | 2019-07-09 09:03 | BH.SGPN.GN ---
Behaviors/Verbalizations/Mental Status: []Client alert and oriented, disheveled appearance. Eye contact fair. Motor activity appropriate. Speech within normal limits. Affect flat, mood anxious, depressed. Thoughts linear, logical, no signs of hallucinations or delusions. Reviewed client?s symptom tracker, no risk for suicidal ideation, plan, or intent as of 07/09/19. Client Response/Progress/Benefit: []Client responded somewhat well to session, actively listening to others, but quiet. Client declined to share during client?s opportunity for check-in. Client?s daily symptom tracker self-assessment did not indicate any risk of suicidal thoughts or behaviors. No progress to document at this time. Will continue IOP tx to prevent decompensation of depression and anxiety as well as decrease avoidance behaviors. Narrative Note: []
--- NOTE | 2019-07-09 11:15 | BH.SGPN.GN ---
Behaviors/Verbalizations/Mental Status: []Client alert and oriented, disheveled in appearance. Eye contact fair. Motor activity appropriate. Speech within normal limits. Affect constricted, mood depressed. Thoughts linear, logical, no signs of hallucinations or delusions. Client Response/Progress/Benefit: []Client was an semi-active participant in group discussion, contributing to discussion at times and listened attentively to others. Completed worksheet and willing to share with the group. Client reported believes he between chapters 3 and 4? as client shared he recognizes there is a a hole he keeps falling in, but doesn't know how to avoid or stop using skills that aren't healthy for him. Client shared to get to the next chapter he is willing to talk with others, instead of staying quiet and isolating. Client unsure where else he will go to meet new people besides at IOP. Progress could be hindered by pt's readiness to change his behaviors. Benefited from group by identifying thoughts and behaviors that have kept him stuck and developing plan to promote progress. Will continue in IOP to increase healthy coping, challenge negative thoughts and prevent decompensation. Narrative Note: []
--- NOTE | 2019-07-12 10:13 | BH.SGPN.GN ---
Behaviors/Verbalizations/Mental Status: [Client alert and oriented, casually dressed and groomed. Eye contact good. Motor activity appropriate. Speech within normal limits. Affect congruent, mood anxious. Thoughts linear, logical, no signs of hallucinations or delusions. ] Client Response/Progress/Benefit: [Client was attentive and actively engaged throughout. Participated in discussion of the quote and shared that it is difficult for them as they don?t believe in the concept of free will. Indicated that despite this, they are open to the idea that we have some control in that we have choices in the path we choose to get to pre-determined end result. The group worked together to identify barriers that keep one from choosing a new and healthier path to mental wellness which included; unhealthy habits, fear of failure, fear of the unknown, apathy, procrastination, lack of awareness, and negative thinking. Attentive during psychoeducation on the chapters of life, providing limited insight to distinguishing factors in each chapter, though actively listening. Reported connecting with reflection on how it can be easy to stay stuck in a chapter without awareness. Benefited from increased awareness and education on barriers to choosing new wellness paths and chapters of life. Progress noted as client able to challenge themselves to provide input at least once which is their identified goal. Will continue IOP tx to further reduce anxiety and depression, while improving client?s ability to function at his baseline.] Narrative Note: []
--- NOTE | 2019-07-12 10:15 | BH.SGPN.GN ---
Behaviors/Verbalizations/Mental Status: [Client alert and oriented, casually dressed, disheveled. Eye contact good. Motor activity appropriate. Speech within normal limits. Affect congruent, mood anxious, dysthymic. Thoughts linear, logical, no signs of hallucinations or delusions.] Client Response/Progress/Benefit: [Client a mostly passive active participant, providing some limited input. Listened as group worked to identify barriers to making changes or taking action in their lives which included: fear of the unknown, fear of failure, comfort zone, denial of need to change, and lack of self-awareness. Group also identified the benefits of taking action which included; increased hope and confidence, improved mental health, no longer feeling ?stuck? or stagnant, and personal growth. Appearing anxious and reported not wanting to share his self-identified areas to begin taking back control of in his own life. Benefited from group through increased awareness of personal areas he wants to improve and benefits to taking action towards mental wellness. Progress limited due to inconsistent engagement and application of coping skills. Pt is recommended continued IOP level of care to improve mood stability, promote application of healthy coping skills, and prevent decompensation.] Narrative Note: []
--- NOTE | 2019-07-12 11:20 | BH.SGPN.GN ---
Behaviors/Verbalizations/Mental Status: []Client alert and oriented, disheveled appearance. Eye contact poor. Motor activity appropriate. Speech within normal limits. Affect flat, mood depressed. Thoughts linear, logical, no signs of hallucinations or delusions. Client Response/Progress/Benefit: []Client was a passive participant AEB client?s silence and declining to participate in worksheet. Client listening to discussion of the different zones of taking action as well as the pros and cons of each. Client was withdrawn and on personal IPad at times throughout session. Client did not complete worksheet and was withdrawn during group discussion. Client had reported in individual sessions that client often shuts down when feeling depressed, but this only makes client feel more depressed. Lack of participation in group session may result in limited progress. Client will continue IOP tx to prevent decompensation and increase use of healthy coping skills. Narrative Note: []
--- NOTE | 2019-07-13 10:15 | BH.SGPN.GN ---
Behaviors/Verbalizations/Mental Status: []Client alert and oriented, disheveled appearance. Eye contact fair. Motor activity appropriate. Speech within normal limits. Affect flat, mood anxious. Thoughts linear, logical, no signs of hallucinations or delusions. Client Response/Progress/Benefit: []Client a passive participant during group AEB client?s disengagement in the active and discussion. Client appeared to be taking notes as the group discussed social support. Client listened as the group brainstorm potential consequences of not having a support system and barriers to developing social supports, which included: feeling like a burden, poor communication, cognitive distortions, fear of rejection and judgement, being closed-minded, and being afraid to ask for help. Group identified benefits of social support as reminder to use healthy coping skills, positive reinforcement, constructive feedback, less anxiety, different perspective, less self-doubt, resources, and accountability. Client was passive during the group activity and declined to participate, but observed. Appeared to benefit from gaining awareness of barriers that keep people from seeking social support as well as identifying the benefits of increasing support. Progress limited as client continues to withdraw during group sessions. Will continue IOP tx to prevent decompensation of anxiety and depressive symptoms. Narrative Note: []
--- NOTE | 2019-07-13 11:15 | BH.SGPN.GN ---
Behaviors/Verbalizations/Mental Status: [Pt alert and oriented, eye contact good, casually dressed, motor activity appropriate, speech normal rate and tone, mood anxious, congruent affect, thoughts linear and intact, no evidence of delusions or hallucinations.] Client Response/Progress/Benefit: [Client struggled to remain engaged and indicated not wanting to participate in the activity portion of session. Pt appears to struggle with social anxiety and often resorts to shutting down or disengaging when anxious. Pt notes insight regarding how current safety behaviors reinforce anxiety; however, continues to report unwillingness to challenge himself to apply coping skills for managing anxiety. Lack of engagement and follow-through both in and outside of tx environment continues to hinder progress. Client declined to engage in discussion and worksheet activity as well. Appeared to benefit from support of environment and psychoeducation provided to continue IOP level of care to prevent decompensation, improve self-esteem, reduce depression and anxiety, and engagement in mental health tx.] Narrative Note: []
--- NOTE | 2019-07-13 12:05 | BH.MDN_ITS ---
Multi-Disciplinary Note - Note 45-min Individual Time Started:: 09:34 Date: 07/13/19 Purpose of session/treatment goals addressed:: The purpose of this session was to address current symptoms, stressors, and avoidance behaviors. Another goal was to teach client about maintenance cycles and strategies to overcome anxiety. Eye Contact:: Fair Motor Activity:: Restless Appearance:: Disheveled Speech:: Tangential Mood:: Anxious, Dysthymic Affect:: Other - incongruent- smiling but reporting I hate my life. Thoughts:: Circular, No evidence of hallucinations/delusions noted Staff Interventions:: Therapist used active listening and open-ended questions to explore client's current stressors, symptoms, and avoidance behaviors. Therapist provided psychoeducation on avoidance behaviors, depression, and maintenance cycles. Therapist provided emotional valiation and support to normalize how difficult it is to reduce avoidance behaviors and break negative maintenance cycles. Therapist taught client the relationship between thoughts, emotions, and behaviors and how these impact one?s mental health. Therapist taught client about a techique to reduce avoidance behaviors called an anxiety hierarchy. Therapist gently challenged client?s distorted thoughts causing ambivalence to client?s ability to change. Therapist gave client homework to practicing talking to two people at [facility]. Client Response:: Client responded well to session, open to meeting with therapist. Client shared feeling some increased depression due to client?s brother experiencing suicidal ideations over the weekend. Client reported ?I had to call crisis? which made client?s brother upset with client. Client stated ?I?d do it again though? as client understands how depression makes a person?s thoughts distorted. Client reports ongoing depression, anxiety, and loneliness. Client has started drawing again and reported hope about selling art one day. However, client reports self-deprecation, constant comparing to others, and disqualifying of positives keeps client stuck. Client receptive to learning about maintenance cycles for depression and anxiety. Client able to connect with the maintenance cycle for depression as client states negative thinking causes client to isolate and miss out on positive experiences. Client also connected with the maintenance cycle for anxiety. Client able to see how avoiding situations that make client anxious lead to increased anxiety over time. Client stated avoidance has negative impacted client?s ability to form relationships. Client learned about the anxiety hierarchy and was able to see the benefits of it. However, client was hesitant to try this due to fear of feeling uncomfortable. After discussing the benefits and costs, client appeared receptive to take small steps in becoming more social. Risks/Concerns:: Client reports I wish I was never born and passive wishes of , but he denies any suicidal ideations, plan, or intent. Client stated scares me. Future oriented throughout session. Talking about hanging out with a friend this week. Progress Toward Goals/Plan:: Client?s second week in IOP, no progress to document at this time. Client continues to endorse a depressed mood, negative thoughts, passive wishes of , low energy, anhedonia, and isolative behaviors. Client admits that client has not been engaged in group due to severe social anxiety and constantly fears judgement from others. Client was receptive to learning about evidence-based practices to help client overcome anxiety and depression. However, client was hesitant to begin applying these techniques. Will continue tx to prevent decompensation, decrease avoidance behaviors that reinforce symptoms, and reduce depression. Time Stopped:: 10:19
--- NOTE | 2019-07-15 10:07 | BH.SGPN.GN ---
Behaviors/Verbalizations/Mental Status: [Client alert and orient. Appearance casual, appropriately groomed. Speech an appropriate rate and tone, however provided limited input. Motor activity WNL. Mood anxious, dysthymic, affect constricted. No evidence of delusion or hallucinations.?] Client Response/Progress/Benefit: [Pt appearing disengaged and reluctant to engage in session. He remained a mostly passive participant AEB limited input provided and laying head down on table throughout. Pt declined to participate and there unable to make much progress or retain materials discussed. Pt to continue in IOP tx to promote healthy change behaviors, reduce depression, increase engagement, and prevent decompensation.] Narrative Note: []
--- NOTE | 2019-07-15 11:18 | BH.SGPN.GN ---
Behaviors/Verbalizations/Mental Status: []Client alert and oriented, casually dressed and groomed. Eye contact poor- sleeping. Motor activity slowed. Speech within normal limits. Affect flat, mood dysthymic. Thoughts linear, logical, no signs of hallucinations or delusions. Client Response/Progress/Benefit: []Client did not respond well to session as client was disengaged and sleeping at times throughout session. Client declined to share client?s communication style and how it impacts client?s mental health. Client also declined to participate during the activity and discussion of communication strategies. Client shared lack of participation was due to having a ?really bad headache.? Client decliend to select a strategy to promote communication. Client and individual therapist have discussed the consequences of not participating in group sessions such as hindering personal mental health progress. Will continue IOP tx to prevent decompensation, reduce avoidance and isolative behaviors, and increase coping skills. Narrative Note: []
--- NOTE | 2019-07-16 09:00 | BH.SGPN.GN ---
Behaviors/Verbalizations/Mental Status: [] Eye contact is poor. Motor activity is appropriate. Appearance is casual. Speech is Appropriate. Mood is depressed/irritable. Affect is flat. Thoughts are linear and logical. No evidence of psychosis. Reviewed daily check in sheet and no reports of suicidal thoughts or intent. Client Response/Progress/Benefit: [] Pt spoke when prompted however declined to check-in. Disengaged and appeared bored during group discussion. No benefit from group noted. No progress noted. Will discuss case further with the team regarding appropriateness for IOP if he remains disengaged. Narrative Note: []
--- NOTE | 2019-07-16 09:00 | BH.SGPN.GN ---
Behaviors/Verbalizations/Mental Status: [] Eye contact is poor. Motor activity is appropriate. Appearance is disheveled. Speech is Appropriate. Mood is depressed. Affect is flat. Thoughts are linear and logical. No evidence of psychosis. Reviewed daily check in sheet and no reports of suicidal ideations or intent Client Response/Progress/Benefit: [] Pt spoke only when prompted and appeared tired. Not engaged in group discussion. Disinterested. Agreed to check in however only stated his emotion which was tired. No progress noted. Did not appear to benefit at all from group. Daily symptom tracker shows 4/5 for anxiety and hopelessness. Notes 3/5 for agitation. Reports poor sleep and low energy. Will continue in IOP to improve healthy functioning, maintain safety, and decrease isolative behaviors. Narrative Note: []
--- NOTE | 2019-07-16 10:10 | BH.SGPN.GN ---
Behaviors/Verbalizations/Mental Status: []Client alert and oriented, disheveled in appearance. Eye contact poor. Motor activity appropriate. Speech within normal limits. Affect flat, mood depressed and anxious. Thoughts linear, logical, no signs of hallucinations or delusions. Client Response/Progress/Benefit: [] Client was a disengaged participant AEB client drawing throughout session, not contributing input to discussion, and chose to not participate in group activity. Group identified barriers to change or what keeps us from making changes which included: uncomfortable emotions, low motivation, lack of support, closed mindedness, high expectations, and stubbornness. Client did not participate with group in activity where they identified and discussed the emotions related to change. Client benefitted by getting out of his house and being around others. Progress minimal due to client being disengaged during group sessions and not applying skills outside treatment environment. Will continue IOP tx to prevent decompensation, decrease isolative behaviors, and increase healthy coping. Narrative Note: []
--- NOTE | 2019-07-19 14:47 | BH.DS_ITS ---
Discharge Summary - Demographics Date of Admission:: 07/07/19 Discharge Date: 07/19/19 Presenting Problems at Admission:: Client is a 24-year-old single non- binary individual with a history of depression and social anxiety. Client was admitted to [facility] in October 2018 for suicidal ideation with a plan to hang self. Client returned to [facility] on July 05, 2019 because client?s depression was worsening again and they referred client to the [facility] program. Client states having worsening mood for about the past month with sadness, hopelessness and worthlessness. Client feels stuck in life, feels lonely, and has been isolating. Client endorses anhedonia, increased sleep at times, low energy level and fluctuating concentration. Client endorses passive thoughts of , but denies any suicidal or homicidal ideation. Client has a history of social anxiety which caused client to dropped out of college. Client had panic attacks in September 2018 but has not having panic attacks now. Client reports numerous stressors including ongoing legal issues, problems at work, and family discord. Client?s symptoms were impacting client?s ability to function at client?s baseline. Discharge Diagnoses:: Major depressive disorder recurrent severe without psychosis F33.2; generalized anxiety disorder Reason for Discharge:: Client chose to discharge from [facility] due to difficulty tolerating large groups and self-report of benefiting more from individual therapy. - Treatment Progress During Treatment & Response: No progress due to client's self-report of lack of implementing coping skills and poor engagement in group sessions. Client attended [facility] a few times since admission, however, client often declined to share or participate during group sessions. Due to limited participation and early discharge, client was unable to make progress towards treatment goals. Issues Still to be Addressed:: Client unable to work towards treatment goals due to early discharge. Client has social anxiety that interferes with client?s ability to form relationhips. Client and therapist had discussed the benefits of creating an anxiety hierarchy, but client was unwilling to work towards facing anxious situations at this time. Client can benefit from learning healthy coping skills, increasing social support, and challenging negative thoughts. Client shared a long history of low self-esteem that continues to hinder client?s occupational and educational functioning. Also could benefit from ongoing counseling to prevent decompensation of symptoms. Discharge Recommendations/Instructions:: Client is recommended to continue with outpatient providers to prevent decompensation and promote continuity of care. Client recieves services at [facility]. Client had an appointment with a new therapist within the last week. Discharge Handout: Complete Discharge Handout with client on aftercare options and continuity of care.
== END 2019-07-19 14:00 | disposition home or self-care (01) ==
LOC: BHIOP 09:00
PROVIDERS: Family Provider Internal Medicine; PCP Internal Medicine; Referring Provider Psychiatry & Neurology Psychiatry; Visit Provider Psychiatry & Neurology Psychiatry
DX: F33.2 Major depressive disorder, recurrent severe without psychotic features (principal); F41.1 Generalized anxiety disorder
CPT/HCPCS: H0035; 90832; 90834; 90853

== ENCOUNTER 2019-09-24 03:04 | Emergency (ER) | payer OTHER, SELFPAY ==
[2019-07-16 13:25] VITALS: BMI 27.6
[2019-09-24 03:06] VITALS: BP 127/79; PULSE 65; RESP 18; TEMP 37; O2SAT 98; BMI 29.7
--- NOTE | 2019-09-24 03:06 | ED.RN ---
SUICIDE PRECAUTIONS STARTED AT THIS TIME.
--- NOTE | 2019-09-24 03:31 | ED.VISSUMM ---
- ER Visit Summary Date of Service: 09/24/19 Chief Complaint: Psych evaluation History of Present Illness: The patient is a 24 M with a history of depression and anxiety. He was referred to the emergency department by his crisis counselor. He was brought in by police. His counselor was concerned he was suicidal. He has not been taking his medication over the past week. He is prescribed 3 psychiatric medications, but is out of 1 of them, so he is not taking any of them. He reports increasing depression symptoms. He is denying thoughts of suicide currently. Denies medical complaints. Physical Examination: Afebrile and vital signs unremarkable. Alert and oriented. Depressed mood and flat affect. Poor eye contact. Mildly angry and agitated. Otherwise exam unremarkable. Test Results: CBC CMP, tox screen, and alcohol level pending. Emergency Department Course and Treatment: Patient had suicide precautions, pink slipped by me. Will check medical clearance testing and refer to crisis. Testing is all negative except for his tox screen which was positive for THC. Patient is medically cleared for transfer and admission at a psychiatric facility. Treatment Plan: As above Disposition: Transfer Impression: Suicidal ideation This note was generated with [employer] dictation software. It may contain incorrect words, spelling, and punctuation that were not noted in review of the chart prior to signing ED Disposition - Plan for ED Patient: Referrals: Savanna Atkins MD [Primary Care Provider] -
--- NOTE | 2019-09-24 03:52 | ED.RN ---
PT VERY RELUCTANT TO GET UNDRESSED, UNWILLING TO GIVE URINE OR LET US TAKE BLOOD. PT EXPLAINED THAT HE IS PINK SLIPPED, LENGTHY EXPLANATION GIVEN TO PATIENT ON WHAT THAT MEANS AND THE ENTIRE MENTAL HEALTH PROCESS. PD AT BEDSIDE ALONG WITH 2 RNs. PT EVENTUALLY TOOK OFF ALL BUT HIS UNDERWEAR AND LET US TAKE BLOOD. PT STILL REFUSING TO GIVE URINE OR TAKE OFF UNDERWEAR.
[2019-09-24 03:57] LABS: Absolute Lymphocyte Count 2.85 X10^3/uL (0.83-4.51); Absolute Neutrophil Count 2.3 X10^3/uL (2.0-7.7); Basophil# 0.05 X10^3/uL; Basophil% 0.8 % (0-1); Eosinophil# 0.19 X10^3/uL; Eosinophils% 3.1 % (0-5); Hematocrit 48.7 % (40-54); Hemoglobin 16.1 g/dL (13.0-16.5); Lymphocyte # 2.85 X10^3/ul (4.0); Lymphocyte % 46.7 % (19-41); Mean Corp Hgb Conc 33.1 g/dL (32-36); Mean Corpuscular Hgb 29.4 pg (27.0-32.0); Mean Corpuscular Volume 88.9 fL (80-94); Mean Platelet Vol. 9.3 fl (6.2-12.0); Monocyte# 0.74 X10^3/uL; Monocyte% 12.1 % (0-10); NRBC Flagged by Analyzer 0 % (0-5); Neutrophil # 2.26 X10^3/uL (2.7-7.7); Neutrophil % 37.1 % (47-70); Platelet Count 263 K/mm3 (150-450); RBC Distribution Width CV 11.9 % (11.6-14.6); Red Blood Count 5.48 M/mm3 (4.6-6.2); White Blood Count 6.1 K/mm3 (4.4-11.0)
[2019-09-24 04:05] VITALS: RESP 18
[2019-09-24 04:20] LABS: Alcohol, Blood (Medical)-Serum < 3.0 mg/dL
[2019-09-24 04:23] LABS: ALB/GLOB Ratio 1.3 RATIO (0.9-2.4); AST(SGOT) 21 U/L (15-37); Alanine Aminotransfer ALT/SGPT 40 U/L (16-61); Albumin, Serum 4.2 g/dL (3.2-5.0); Alkaline Phosphatase 64 U/L (45-117); Anion Gap 5 (5-15); BUN 15 mg/dL (7-18); BUN/Creat Ratio 13.2 RATIO (10-20); Calcium,Total 8.8 mg/dL (8.5-10.1); Chloride 105 mmol/L (98-107); Creatinine, Serum 1.14 mg/dL (0.70-1.30); EST Glomerular Filtration Rate 84 mL/min (>60); Est Glom Filt Rate - Afr Amer 102 mL/min (>60); Estimated Creatinine Clearance 107.34 ml/min; Globulin 3.2 g/dL (2.2-4.2); Glucose 101 mg/dL (74-106); Potassium 3.6 mmol/L (3.5-5.1); Protein, Total 7.4 g/dL (6.4-8.2); Sodium Level 139 mmol/L (136-145)
[2019-09-24 04:34] LABS: Amphetamine Urine VISTA NEGATIVE (<1000 ng/mL); Barbiturate Urine VISTA NEGATIVE (< 200 ng/mL); Benzodiazepine Urine VISTA NEGATIVE (< 200 ng/mL); Cocaine Urine VISTA NEGATIVE (< 300 ng/mL); Ecstacy Urine VISTA NEGATIVE (< 500 ng/mL); Methadone Urine VISTA NEGATIVE (< 300 ng/mL); PCP Urine VISTA NEGATIVE (< 25 ng/mL); THC Urine VISTA POSITIVE (< 50 ng/mL); Vista UDS pH Range 5
[2019-09-24 05:00] VITALS: RESP 16
--- NOTE | 2019-09-24 05:17 | ED.RN ---
[facility] WORKING ENROUTE TO [facility] ER
[2019-09-24 06:00] VITALS: BP 109/64; PULSE 63; RESP 18; O2SAT 97
[2019-09-24 07:17] VITALS: RESP 17
[2019-09-24 08:33] VITALS: BP 114/76; PULSE 87; RESP 18; O2SAT 99
== END 2019-09-24 09:12 ==
PROVIDERS: Emergency Provider Emergency Medicine; PCP Internal Medicine
DX: R45.851 Suicidal ideations (principal); F32.9 Major depressive disorder, single episode, unspecified; F41.9 Anxiety disorder, unspecified; Z79.899 Other long term (current) drug therapy; F12.90 Cannabis use, unspecified, uncomplicated
CPT/HCPCS: 80053; 80307; 80320; 85025; 99281; G0480

== ENCOUNTER 2019-11-01 03:45 | Emergency (ER) | payer OTHER, SELFPAY ==
[2019-11-01] VITALS (8 sets, daily range): BP systolic 110–128; BP diastolic 76–80; PULSE 73–80; RESP 15–18; TEMP 36.9; O2SAT 95–98; BMI 27.1
--- NOTE | 2019-11-01 04:09 | ED.DCSUM_ITS ---
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 Narrative: Patient was speaking with crisis counselor on the phone and had suicidal ideation. They called the police who arrived at the patient's house and escorted him to the emergency department. He has a history of depression and has been admitted to psychiatric facilities in the recent past. His last visit to our emergency department and psychiatric evaluation and transfer was at the end of August. Patient told police who created a pink slip that the patient wanted to kill himself and would stab himself if able. Patient will not give me history. He just asked me what psychiatric facility I am sending him to. Otherwise she does not want to speak. He did state he will cooperate if able to use his [employer] switch - Past Medical History (1) Depression with anxiety Status: Chronic Past Medical History - Allergies and Home Meds Allergies/Adverse Reactions: Allergies pollen extracts Allergy (Verified 07/16/19 13:23) Unknown Primary Care Physician: Savanna Atkins MD [Primary Care Provider] - Prior records reviewed: Yes Past Medical History: - - See problem list Surgical History: noncontributory Smoking Status: Unknown if ever smoked Alcohol: None Drugs: None Review of Systems ROS: Unable to Obtain - Patient does not want to talk that he will cooperate Psych: Reports: Suicidal thoughts - Please reports the patient stated he wants to stab himself Physical Exam Vital Signs/Narrative: Vital Signs Temp Pulse Resp BP Pulse Ox 11/01/19 03:45 98.5 F 76 15 128/80 H 95 General: Well nourished, Well developed, No Acute Distress Head: Normocephalic, Atraumatic Eyes: Perrl, EOMI ENT: Moist mucous membranes, No rhinorrhea Neck: Supple, Nontender Cardiovascular: Regular rate, Regular rhythm, No murmurs Respiratory: No distress, CTA bilaterally, Chest nontender Abdomen: Soft, Nontender, Nondistended, Normal bowel sounds Back: Nontender, Normal Inspection Extremities: Nontender, No edema Skin: Normal color, No rash Neurological: Alert, Oriented x3, Cranial nerves II-XII grossly intact, Normal Strength, Normal Sensation Psychological: Depressed. Negative for: Normal affect, Normal Mood Diagnostic/Tx/Re-eval - Medical Decision Making Patient will undergo medical clearance laboratory. Will be seen by crisis. Is pink slipped for suicidal ideation. Lab work shows nothing acute. Potassium mildly low but nothing significant. EKG shows normal sinus rhythm at a rate of 66. Alcohol negative. Toxicology screen shows methamphetamines. Patient will be transferred to for psychiatric evaluation ED Disposition - Plan for ED Patient: Disposition: Psychiatric Hospital or Unit Diagnosis: Suicidal ideation
[2019-11-01 04:22] LABS: Absolute Neutrophil Count 2.2 X10^3/uL (2.0-7.7); Basophil# 0.03 X10^3/uL; Basophil% 0.6 % (0-1); Eosinophil# 0.14 X10^3/uL; Eosinophils% 2.7 % (0-5); Hematocrit 45.5 % (40-54); Hemoglobin 15.1 g/dL (13.0-16.5); Lymphocyte % 43.8 % (19-41); Mean Corp Hgb Conc 33.2 g/dL (32-36); Mean Corpuscular Hgb 29.4 pg (27.0-32.0); Mean Corpuscular Volume 88.7 fL (80-94); Mean Platelet Vol. 9.4 fl (6.2-12.0); Monocyte# 0.59 X10^3/uL; Monocyte% 11.2 % (0-10); NRBC Flagged by Analyzer 0 % (0-5); Neutrophil # 2.18 X10^3/uL (2.7-7.7); Neutrophil % 41.5 % (47-70); Platelet Count 221 K/mm3 (150-450); RBC Distribution Width CV 11.6 % (11.6-14.6); RBC Distribution Width SD 37.2 fl (35.1-43.9); Red Blood Count 5.13 M/mm3 (4.6-6.2); White Blood Count 5.3 K/mm3 (4.4-11.0)
--- NOTE | 2019-11-01 04:34 | ED.RN ---
ON ARRIVAL TO ED: PT WOULD NOT ANSWER ANY QUESTIONS DURING TRIAGE PROCESS. PT ACCOMPANIED BY POLICE. PER POLICE REPORT: PT HAD CALLED CRISIS AND REPORTED HE WAS SUICIDAL AND CRISIS CALLED POLICE. PT TOLD CRISIS THAT HE WANTED TO KILL HIMSELF BY STABBING HIMSELF IN THE SHOULDER WITH A KNIFE.
[2019-11-01 04:37] LABS: Alcohol, Blood (Medical)-Serum < 3.0 mg/dL
[2019-11-01 04:39] LABS: Anion Gap 5 (5-15); BUN 10 mg/dL (7-18); BUN/Creat Ratio 9.6 RATIO (10-20); Calcium,Total 8.7 mg/dL (8.5-10.1); Chloride 107 mmol/L (98-107); Creatinine, Serum 1.04 mg/dL (0.70-1.30); EST Glomerular Filtration Rate 94 mL/min (>60); Est Glom Filt Rate - Afr Amer 113 mL/min (>60); Estimated Creatinine Clearance 114.06 ml/min; Glucose 130 mg/dL (74-106); Potassium 3.4 mmol/L (3.5-5.1); Sodium Level 140 mmol/L (136-145)
--- NOTE | 2019-11-01 04:39 | ED.RN ---
THIS RN CONTACTED CRISIS [facility] ABOUT PT. PT IS MEDICALLY CLEAR TO BE EVALUATED PER DR. GARCIA. FUNERAL PRE NEED CONSULTANT STATES COUNSELOR TO CALL ED BACK
[2019-11-01 04:50] LABS: Amphetamine Urine VISTA NEGATIVE (<1000 ng/mL); Barbiturate Urine VISTA NEGATIVE (< 200 ng/mL); Benzodiazepine Urine VISTA NEGATIVE (< 200 ng/mL); Cocaine Urine VISTA NEGATIVE (< 300 ng/mL); Ecstacy Urine VISTA POSITIVE (< 500 ng/mL); Methadone Urine VISTA NEGATIVE (< 300 ng/mL); PCP Urine VISTA NEGATIVE (< 25 ng/mL); THC Urine VISTA NEGATIVE (< 50 ng/mL); Vista UDS pH Range 6
--- NOTE | 2019-11-01 05:19 | EKG12_ITS ---
Test Reason : MHC Blood Pressure : / mmHG Vent. Rate : 066 BPM Atrial Rate : 066 BPM P-R Int : 168 ms QRS Dur : 100 ms QT Int : 374 ms P-R-T Axes : 052 053 048 degrees QTc Int : 392 ms Normal sinus rhythm Normal ECG Confirmed by ANAND REYEZ, NATALIE ([id number]), editor city MONIQUE MANZO ([id number]) on 11/02/2019 1:36:42 PM Referred By: RAJESH Confirmed By:NATALIE MICHEL MD
[2019-11-01 05:43] LABS: AST(SGOT) 23 U/L (15-37); Alanine Aminotransfer ALT/SGPT 52 U/L (16-61); Albumin, Serum 3.9 g/dL (3.2-5.0); Alkaline Phosphatase 62 U/L (45-117); Bilirubin, Direct 0.09 mg/dL (0.00-0.30); Globulin 2.9 g/dL (2.2-4.2); Protein, Total 6.8 g/dL (6.4-8.2)
--- NOTE | 2019-11-01 09:03 | ED.RN ---
ZOE CHARLES WITH CRISIS; GENERATIONS IS STILL REVIEWING THE PTS CHART
== END 2019-11-01 15:33 ==
PROVIDERS: Emergency Provider Emergency Medicine; PCP Internal Medicine
DX: R45.851 Suicidal ideations (principal); F41.8 Other specified anxiety disorders; Z79.899 Other long term (current) drug therapy
CPT/HCPCS: 80048; 80076; 80307; 80320; 85025; 93005; 99285; G0480